=== PATIENT | male | born 1970 | race American Indian/Alaskan Native ===

== ENCOUNTER 2021-01-20 19:54 | Emergency (ER) | payer SELFPAY ==
[2021-01-20 21:19] VITALS: BP 157/89
[2021-01-20] MEDS ORDERED: ACETAMINOPHEN 500 MG TAB PO ONE (22:48)
[2021-01-20] MEDS ORDERED: IBUPROFEN 600 MG TAB PO ONE (22:48)
--- NOTE | 2021-01-20 23:08 | XRay Report ---
Right femur INDICATION: Injury FINDINGS: Right femoral head is well-seated in the acetabulum. Femoral shaft appears intact. No acute fractures seen. No periosteal reaction. Signer Name: Malachi Marino MD Signed: 01/20/2021 11:04 PM Workstation Name: [id number]
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
== END 2021-01-21 00:34 | disposition home or self-care (01) ==
LOC: ED 19:54
DX: S76.911A Strain of unspecified muscles, fascia and tendons at thigh level, right thigh, initial encounter (principal); S70.01XA Contusion of right hip, initial encounter; V19.09XA Pedal cycle driver injured in collision with other motor vehicles in nontraffic accident, initial encounter; Y93.89 Activity, other specified; Y92.89 Other specified places as the place of occurrence of the external cause; Y99.8 Other external cause status
CPT/HCPCS: 99283